=== PATIENT | male | born 1990 | race Two or more races ===

== ENCOUNTER 2024-11-10 21:09 | Emergency (ER) | payer SELFPAY ==
[2024-11-10 22:03] VITALS: BP 124/88; PULSE 83; RESP 20; TEMP 36.8; O2SAT 97
--- NOTE | 2024-11-10 22:09 | XR_ITS ---
Examination: CT abdomen with intravenous contrast CT pelvis with intravenous contrast 2-D coronal reconstructions 2-D sagittal reconstructions Date and time of exam:November 11, 2024 at 0017 hrs. Indications: Onset abdominal pain today. CTDI: vol (mGy) 15 DLP: (mGycm) 987 Technique: Multiple axial sections of the abdomen and pelvis have been obtained. 64 slice high-resolution scanner used. 3 mm axial sections have been obtained, post intravenous injection 60 cc [id number] 2-D sagittal, coronal reconstructions obtained. Low dose protocols were performed. One or more of the following dose reduction techniques were used; automated exposure control, adjustment of the mA and/or KV according to patient size, use of iterative reconstruction technique. Findings: Diffuse fatty infiltration throughout the liver No focal liver or splenic lesion No gallstones No renal or ureteral calculi, no hydronephrosis Aorta normal size Normal appendix 27 mm fat-containing umbilical hernia No bowel obstruction No diverticulitis No bladder mass or bladder calculi No prostatomegaly Impression: No renal or ureteral calculi, no hydronephrosis Normal appendix 27 mm fat-containing umbilical hernia
--- NOTE | 2024-11-10 22:09 | PD.EDRME ---
Rapid Medical Screening Exam RME Arrival date/time: 11/10/24 21:09 34-year-old male with a history of ventral he reports with complaint of abdominal Chief Complaint: Abdominal Pain Time Seen by Provider: 11/10/24 21:47 Vital signs: Vital Signs Temperature 98.2 F 11/10/24 22:03 Pulse Rate 83 11/10/24 22:03 Respiratory Rate 20 11/10/24 22:03 Blood Pressure 124/88 H 11/10/24 22:03 Pulse Oximetry (%) 97 11/10/24 22:03 Oxygen Delivery Method Room Air 11/10/24 22:03
[2024-11-10 22:34] LABS: Basophils # (Auto) 0.1 Thou/mm3 (0.0-0.2); Basophils % (Auto) 1 % (0-2.5); Eosinophils # (Auto) 0.2 Thou/mm3 (0.0-0.5); Eosinophils % (Auto) 3 % (0-10); Hematocrit 45.9 % (41.0-53.0); Hemoglobin 16.2 g/dL (13.5-16.0); Immature Granulocytes % (Auto) 0 % (0-0); Immature Granulocytes Auto 0.04 Thou/mm3 (0.00-0.00); Lymphocytes # (Auto) 3.2 Thou/mm3 (1.0-4.8); Lymphocytes % (Auto) 34 % (10-50); Mean Corpuscular HGB Conc 35.3 g/dl (31.0-37.0); Mean Corpuscular Hemoglobin 30.7 pg (25.0-35.0); Mean Corpuscular Volume 87 fL (80-100); Monocytes # (Auto) 0.4 Thou/mm3 (0.0-0.8); Monocytes % (Auto) 5 % (0-12); Neutrophils # (Auto) 5.5 Thou/mm3 (1.8-7.7); Neutrophils % (Auto) 58 % (37-80); Nucleated Red Blood Cell % 0 /100 WBC (0); Platelet Count 218 Thou/mm3 (140-440); RDW Standard Deviation 37.4 fL (35.1-43.9); Red Blood Count 5.27 Miln/mm3 (4.50-5.90); White Blood Count 9.5 Thou/mm3 (3.8-10.6)
[2024-11-10 22:39] LABS: Collection Type, Urine Clean Catch
[2024-11-10 22:54] LABS: Bilirubin,Urine Negative (Negative); Blood,Urine Negative (Negative); Clarity,Urine Clear (Clear/Hazy); Color,Urine Yellow (Lt Yel-Yel); Culture Indicated,Urine Not Indicated; Glucose, Urine Trace (Negative); Hyaline Casts,Urine < 1 /hpf (0-1); Ketones,Urine Trace (Negative); Leukocyte Esterase,Urine Negative (Negative); Nitrite,Urine Negative (Negative); Protein,Urine 2+ (Neg - Trace); RBC,Urine 1 /hpf (0-3); Specific Gravity,Urine 1.035 (1.001-1.035); Squamous Epithelial Cell,Urine 1 /hpf (0-5); Urobilinogen,Urine Negative mg/dL (0.0-1.0); WBC,Urine 2 /hpf (0-5)
[2024-11-10 22:55] LABS: Alanine Aminotransferase 42 U/L (10-49); Albumin, Serum 4.3 gm/dL (3.5-5.0); Albumin/Globulin Ratio 1.3 (1.2-2.2); Alkaline Phosphatase 108 U/L (46-116); Anion Gap 7 (7-16); Aspartate Amino Transferase 24 U/L (0-34); BUN/Creatinine Ratio 12 Ratio (12-20); Bilirubin,Total 0.5 mg/dL (0.3-1.2); Blood Urea Nitrogen 12 mg/dL (9-23); Carbon Dioxide 31.4 mMol/L (20.0-31.0); Chloride 101 mMol/L (98-107); Estimated Creatinine Clearance 147.8 mL/min (>60); Globulin 3.4 gm/dL (2.3-3.5); Glucose 249 mg/dL (74-106); Lipase 29 U/L (12-53); Osmolality,Calculated 285 (275-295); Sodium 139 mMol/L (136-145); Total Protein 7.7 gm/dL (5.7-8.2); eGFR > 60 See Note
--- NOTE | 2024-11-10 23:37 | PD.EDABDPN ---
ED Abdominal Pain RME/HPI General Chief Complaint: Abdominal Pain Stated complaint: ABD PAIN Time seen by provider: 11/10/24 21:47 Arrival date/time: 11/10/24 21:09 Limitations: no limitations RME / HPI RME / HPI narrative: 11/10/24 21:09 34-year-old male with a history of ventral he reports with complaint of abdominal -------- Dr. [facility] Main ED Evaluation: 34yo male with a history of a hernia presents to the ED for a chief complaint of generalized abdominal pain x 1 week. Patient states he started having abdominal pain while at work. He states his pain worsened to a 5 out of 10 in severity and was concerned, so he came in for evaluation. He denies any N/V/D, fever, chills, UTI symptoms or any other associated symptoms. No known allergies. Related Data Home Medications ?Medication ?Instructions ?Recorded ?Confirmed No Known Home Medications 02/14/19 02/14/19 Allergies Allergy/AdvReac Type Severity Reaction Status Date / Time No Known Allergies Allergy Verified 11/10/24 22:07 Review of Systems Review of Systems Systems Reviewed: All systems reviewed, normal except as documented ED Exam General Limitations: Present no limitations General appearance: Present alert and in no apparent distress Head Head exam: Present atraumatic Eye Eye exam: Present normal appearance, PERRL and EOMI ENT ENT exam: Present normal exam, normal oropharynx and mucous membranes moist Neck Neck exam: Present normal inspection, full ROM and trachea midline Chest Chest inspection: Present normal inspection and symmetric chest wall rise Respiratory Respiratory exam: Present normal lung sounds bilaterally Cardiovascular Cardiovascular exam: Present regular rate, normal rhythm and normal heart sounds Abdominal Exam Abdominal exam: Present soft, normal bowel sounds and other (large; has fullness at the umbilicus); Absent rebound Extremities Exam Extremities exam: Present normal inspection and full ROM Back Exam Back exam: Present normal inspection and full ROM Neurological Exam Neurological exam: Present alert, oriented X3 and CN II-XII intact Psychiatric Psychiatric exam: Present normal affect and normal mood Skin Skin exam: Present warm, dry, intact and normal color Course Quality Measures none Orders Category Date Time Status CT Screening NOW Care 11/10/24 22:[address] abdomen pelvis w con Stat Exams 11/10/24 22:09 Taken CBC Stat Lab 02/26/25 22:24 Completed CMP [Comprehensive Metabolic Panel] Stat Lab 11/10/24 22:24 Completed Lipase Stat Lab 11/10/24 22:24 Completed UA, C/S IF [Urinalysis, C/S if Indicated] Stat Lab 11/10/24 22:20 Completed Reevaluation(s) Reevaluation #1: Patient rates his pain 1 out of 10. Discussed results with the patient. He is stable to be discharged home. Time: 03:01 Vital Signs Vital signs: Vital Signs Temperature 98.2 F 11/10/24 22:03 Pulse Rate 83 11/10/24 22:03 Respiratory Rate 20 11/10/24 22:03 Blood Pressure 124/88 H 11/10/24 22:03 Pulse Oximetry (%) 97 11/10/24 22:03 Oxygen Delivery Method Room Air 11/10/24 22: Pulse ox is 97% on room air, which is normal according to my interpretation. Abdominal Pain MDM Patient data External records reviewed:: [facility] previous records (Per chart review, patient has no relevant previous ED visits or admissions to this facility.) Clinical information provided by:: patient Social determinants that could affect healthcare access:: none Patient has the following chronic illnesses:: Obesity How is presenting disease/condition affected by chronic disease/condition?: no chronic disease Evaluation data The following diagnostics were reviewed and interpreted by me:: lab results and radiology exam(s) Lab and/or radiology exams considered but not ordered:: None Interpretation Summary: Mild elevated glucose Telerad Preliminary Report Draft Patient: [facility]. Record#: [id number] Birthdate: 1990 Age/Sex: 34 / M Location: [facility] Attending Dr: Ordering Physician: Date of Service: Procedure(s): Accession Number(s): cc: ~ CT scan of the abdomen and pelvis with intravenous contrast (axial sections with sagittal and coronal reformats); November 11, 2024 at 0014 hours Clinical History: Abdominal pain. No prior study is available for comparison. Findings: Subpleural atelectasis is seen in the left lower lung base. Fatty infiltration of the liver is noted. The gallbladder, pancreas, spleen, kidneys and adrenals are unremarkable. No evidence of small or large bowel dilatation. The appendix is within normal limits. The urinary bladder is not well distended with apparent wall thickening. There is no free fluid or free air.There is no adenopathy. A small fat-containing umbilical hernia is present. Mild degenerative changes are identified in the spine. Impression: No evidence of bowel dilatation, free air or abscess. Possible cystitis. Other findings as described above. Report Electronically Signed By: Mayito Smith 11/11/2024 1:41:25 AM [EST Medications / Prescriptions Medications or Prescriptions considered but not ordered:: None Medication administrations:: N/A Consultations Consultation(s) initiated? (list below): No Consultation #1 (Physician, Specialty, Details): None Diagnosis Differential diagnosis abdominal pain: abdominal pain, diverticulitis, gastroenteritis, small bowel obstruction and other (Hernia) Most likely diagnosis given after review of the tests above:: see below Admission Indicated Admission indicated?: not indicated Explain why admission is indicated or not indicated:: Admission criteria not met Admission Request Was there a request for admission?: No Disposition Plan Disposition Plan: Discharge Discharge Attestation Discharge Attestation: The patient and all family members were given an opportunity to ask questions and understood the discharge instructions. Discharge instructions specifically effects, indications for sooner follow up or return to the emergency department, and the expected course of current diagnosis. Patient condition: Stable Discharge Plan Plan Patient Disposition: HOME (Self Care) Patient condition on transfer: Stable Prescriptions/Referrals Prescriptions/Med Rec: No Action No Known Home Medications Referrals: [facility] [Outside] - In 1 week No Primary/Family,Physician [Primary Care Provider] - In 1 week Smita Sheets MD [Physician] - In 1 week (You may need to follow-up with your primary care for referral.) Problem List Clinical Impression: Hernia, umbilical Patient/Caregiver Discharge Instructions Education Materials: ED Hernia (Adult) Additional Instructions: Today your CT scan does not show that you have an obstruction or incarcerated hernia. You will need to follow-up with general surgery to see if there is anything they want to do about your umbilical hernia. Please do not do any type of heavy lifting or any significant pressure on the abdominal borja so you can prevent worsening of your hernia. You can obtain an abdominal binder and wear that when you are at work for comfort if needed. Print Language: Scottish Stand Alone Forms: [email or web address] Patient Portal Info Letter
[2024-11-11 00:56] VITALS: BP 118/78; PULSE 63; RESP 18; TEMP 37.1; O2SAT 96
--- NOTE | 2024-11-11 01:42 | PRELIM_ITS ---
CT scan of the abdomen and pelvis with intravenous contrast (axial sections with sagittal and coronal reformats); November 11, 2024 at 0014 hours Clinical History: Abdominal pain. No prior study is available for comparison. Findings: Subpleural atelectasis is seen in the left lower lung base. Fatty infiltration of the liver is noted. The gallbladder, pancreas, spleen, kidneys and adrenals are unremarkable. No evidence of small or large bowel dilatation. The appendix is within normal limits. The urinary bladder is not well distended with apparent wall thickening. There is no free fluid or free air.There is no adenopathy. A small fat-containing umbilical hernia is present. Mild degenerative changes are identified in the spine. Impression: No evidence of bowel dilatation, free air or abscess. Possible cystitis. Other findings as described above. Report Electronically Signed By: Mayito Smith 11/11/2024 1:41:25 AM [EST]
[2024-11-11 02:00] VITALS: BP 122/68; PULSE 70; RESP 16; TEMP 36.8; O2SAT 95
[2024-11-11 03:32] VITALS: BP 135/86; PULSE 72; RESP 16; TEMP 36.7; O2SAT 97
== END 2024-11-11 03:48 | disposition home or self-care (01) ==
PROVIDERS: Physician Assistant; Emergency Provider Emergency Medicine
DX: K42.9 Umbilical hernia without obstruction or gangrene (principal)
CPT/HCPCS: 36415; 74177; 80053; 81001; 83690; 85025; 99285; A4649; Q9967